=== PATIENT | female | born 1960 ===

== ENCOUNTER 2023-04-09 09:38 | Outpatient (CLI) | payer MEDICARE, MEDICAID, SELFPAY ==
--- NOTE | ~2023-04-09 | CT_ITS ---
EXAMINATION: CT abdomen pelvis wo/w con DATE: 04/09/2023 10:43 INDICATION: Gross hematuria TECHNIQUE: Computed tomography (CT) of the abdomen and pelvis was performed without intravenous contr ast. CT of the abdomen and pelvis was then performed with a total of 130 mL Omnipaque 350 intravenous contrast using a double-bolus technique for simultaneous opacification of the renal parenchyma and r enal collecting system. The dose-length product (DLP) was 3146.82 mGy-cm. Automated exposure control and iterative reconstruction technique were employed. COMPARISON: 12/20/2017 FINDINGS: Minimal dependent atelectasis is present in the lung bases. The heart size is normal. Punct ate calcifications in otherwise normal appearing liver and spleen likely represent healed granulomato us disease. There is mild periportal lymphadenopathy, likely reactive. The pancreas and adrenal gland s are unremarkable. Cysts of the left kidney measure up to 2 cm. No stones are identified in the kidn eys, ureters, or bladder. No hydronephrosis or hydroureter. No suspicious renal or urothelial lesion identified. No free intraperitoneal gas or evidence of bowel obstruction. There is severe lumbar spon dylosis. IMPRESSION: 1. No CT correlate for the patient's symptoms. Reviewed, dictated and finalized at location F. MAKER
[2023-04-09 10:21] LABS: Estimated Glomerular Filt Rate 56
== END 2023-04-09 09:39 | disposition home or self-care (01) ==
PROVIDERS: Visit Provider Urology
DX: R31.0 Gross hematuria (principal)
CPT/HCPCS: 74178; Q9967

== ENCOUNTER 2023-11-11 21:03 | Emergency (ER) | payer MEDICARE, MEDICAID, SELFPAY ==
--- NOTE | ~2023-11-11 | XR_ITS ---
EXAMINATION: XR chest 1V DATE: 11/11/2023 21:30 INDICATION: Altered mental status. TECHNIQUE: A single frontal view of the chest was obtained. COMPARISON: Chest 2 views 12/18/2017, CT abdomen and pelvis 04/09/2023 FINDINGS: The patient is rotated to her left. There is mild atelectasis at left lung base. No pleural effusion or pneumothorax. The heart size is normal. Calcified right hilar lymph nodes are consistent with old granulomatous disease. There is an old healed right rib fracture. IMPRESSION: 1. Mild atelectasis at left lung base. Reviewed, dictated and finalized at location E.
--- NOTE | ~2023-11-11 | CT_ITS ---
EXAMINATION: CT brain wo con DATE: 11/11/2023 21:28 INDICATION: Altered mental status. TECHNIQUE: Computed tomography (CT) of the head was performed without intravenous contrast. The mA wa s adjusted according to patient size. Iterative reconstruction technique was employed. The dose-lengt h product was 681.00 mGy-cm. COMPARISON: None FINDINGS: There is no intracranial hemorrhage, acute infarction, or abnormal intracranial mass lesion . The ventricles are normal in size. There is mild mucosal thickening in the ethmoid sinuses. The orb its are normal. The mastoid air cells are normal. There is cerumen in the external auditory canals. T here is extensive dental disease. IMPRESSION: 1. Normal brain. Reviewed, dictated and finalized at location E. IMPRESSION: 1. Normal brain.
[2023-11-11 21:03] VITALS: BP 126/63; PULSE 85; RESP 17; TEMP 36.9; O2SAT 98
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
--- NOTE | 2023-11-11 22:09 | PC.NURSE ---
Called report to [facility] at [phone], was able to get caregiver name on who report was given to.
[2023-11-11] MEDS: ALPRAZolam (*CRX) 0.5 MG TABLET PO (22:28)
--- NOTE | 2023-11-11 23:02 | PC.NURSE ---
Patient assisted to the bathroom and back to her room with ladarius cope, this RN and healthcare technician. Patient tolerated well. Patient given another soda and snack upon request.
[2023-11-12 01:00] VITALS: BP 159/71; PULSE 84; RESP 15; TEMP 36.7; O2SAT 96
== END 2023-11-12 01:19 ==
PROVIDERS: Emergency Provider Emergency Medicine
DX: R45.6 Violent behavior (principal); F17.200 Nicotine dependence, unspecified, uncomplicated
CPT/HCPCS: 70450; 71045; 99284; A9270